=== PATIENT | male | born 1995 | race Caucasian/White ===

== ENCOUNTER 2024-01-21 16:55 | Outpatient (OUT) | payer OTHER, SELFPAY ==
--- NOTE | 2024-01-21 | US_ITS ---
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 FINDINGS: There are 2 separate oval isoechoic to slightly hyperechoic thinly encapsulated lesions within the subcutaneous fat of the left chest which corresponds to the patient's lumps, the largest is 1.5 x 1.5 x 0.6 cm. There are 2 separate oval isoechoic to slightly hyperechoic thinly encapsulated lesions within the subcutaneous fat of the left lateral back which corresponds to patient's palpable lumps, the largest is 2.5 x 2.0 x 0.8 cm. US/US extremity nonvascular LT IMPRESSION: 1. Nonspecific subcutaneous lesions corresponding to patient's palpable lumps, ultrasound findings favor lipomas. Electronically authenticated by: ANA M FISHMAN Date: 01/22/2024 06:24
== END 2024-01-21 16:56 | disposition home or self-care (01) ==
PROVIDERS: PCP Family Medicine
DX: D48.9 Neoplasm of uncertain behavior, unspecified (principal)
CPT/HCPCS: 76882